=== PATIENT | male | born 1970 | race Caucasian/White ===

== ENCOUNTER 2021-05-10 17:38 | Emergency (ER) | payer MEDICAID, OTHER ==
[2021-05-10] MEDS ORDERED: Heparin Sodium 5,000 Units/ML Vial IVPUSH ONE (17:50)
[2021-05-10] MEDS ORDERED: Aspirin 81 MG Tab.Chew PO ONE (17:50)
[2021-05-10] MEDS: Nitroglycerin 0.4 MG Tab.SL SL ONE ×2 (17:54→18:07)
[2021-05-10] MEDS ORDERED: Morphine 4 MG/ML Syringe IVPUSH ONE (18:07)
[2021-05-10] MEDS ORDERED: Clopidogrel 75 MG Tab PO ONE (18:07)
[2021-05-10] MEDS ORDERED: Nitroglycerin/D5W 25 MG/250 ML BOTTLE IV SCH (18:15)
--- NOTE | 2021-05-10 18:15 | EDM.PDOC ---
ED HPI GENERAL MEDICAL PROBLEM - General Chief Complaint: Cardiovascular Problem Stated Complaint: POSSIBLE HEATY ATTACK Time Seen by Provider: 05/10/21 17:50 Source of Information: Reports: Patient History Limitations: Reports: No Limitations - History of Present Illness INITIAL COMMENTS - FREE TEXT/NARRATIVE: This is a 50-year-old male with history of hyperlipidemia, hypertension, tobacco use who presents with bilateral arm pain. He reports that approximately 5 PM this evening he noted the sudden onset of bilateral arm pain. Some mild associated dyspnea. No history of similar pain in the past. Pain does not radiate to the back. Is not pleuritic. No cough. No history of cardiac disease. No blood thinner use. Bilateral Arm Pain Score (Numeric/FACES): 5 - Related Data Allergies Allergy/AdvReac Type Severity Reaction Status Date / Time No Known Allergies Allergy Verified 05/10/21 17:50 Home Meds: Home Meds Aspirin [Adult Low Dose Aspirin EC] 81 mg PO DAILY 05/10/21 [History] Simvastatin [Zocor] 20 mg PO BEDTIME 05/10/21 [History] lisinopriL [Lisinopril] 10 mg PO DAILY 05/10/21 [History] Past Medical History Cardiovascular History: Reports: CAD, High Cholesterol, Hypertension Respiratory History: Reports: None Gastrointestinal History: Reports: None Genitourinary History: Reports: None Musculoskeletal History: Reports: Arthritis, Fracture Neurological History: Reports: None Psychiatric History: Reports: None Endocrine/Metabolic History: Reports: None Hematologic History: Reports: None Oncologic (Cancer) History: Reports: None Dermatologic History: Reports: None - Infectious Disease History Infectious Disease History: Reports: Chicken Pox - Past Surgical History HEENT Surgical History: Reports: Oral Surgery GI Surgical History: Reports: None Musculoskeletal Surgical History: Reports: Other (See Below) Other Musculoskeletal Surgeries/Procedures:: elbow surgery left Social & Family History - Tobacco Use Tobacco Use Status *Q: Current Every Day Tobacco User Years of Tobacco use: 25 Packs/Tins Daily: 1.5 - Caffeine Use Caffeine Use: Reports: Coffee - Recreational Drug Use Recreational Drug Use: No ED ROS GENERAL - Review of Systems Review Of Systems: See Below Constitutional: Reports: No Symptoms HEENT: Reports: No Symptoms Respiratory: Reports: Shortness of Breath Cardiovascular: Reports: Chest Pain Endocrine: Reports: No Symptoms GI/Abdominal: Reports: No Symptoms : Reports: No Symptoms Musculoskeletal: Reports: No Symptoms Skin: Reports: No Symptoms Neurological: Reports: No Symptoms Psychiatric: Reports: No Symptoms Hematologic/Lymphatic: Reports: No Symptoms Immunologic: Reports: No Symptoms ED EXAM, GENERAL - Physical Exam Exam: See Below Exam Limited By: No Limitations General Appearance: Alert, No Apparent Distress Ears: Normal External Exam Nose: Normal Inspection Throat/Mouth: Normal Inspection Head: Atraumatic, Normocephalic Neck: Normal Inspection Respiratory/Chest: Lungs Clear Cardiovascular: Regular Rate, Rhythm GI/Abdominal: Soft, Non-Tender Back Exam: Normal Inspection Extremities: Normal Inspection, No Pedal Edema Neurological: Alert, Oriented Psychiatric: Normal Affect, Normal Mood Skin Exam: Warm, Dry #1 Interpretation Rhythm: NSR ST-T: Elevated (ST elevation in leads II, III and aVF with anterior reciprocal changes.) Course - Vital Signs Last Recorded V/S: Last Vital Signs Temp 35.7 C L 05/10/21 17:44 Pulse 78 05/10/21 17:59 Resp 16 05/10/21 17:59 BP 101/49 L 05/10/21 18:07 Pulse Ox 95 05/10/21 17:59 - Orders/Labs/Meds Orders: Active Orders 24 hr Category Date Time Status CXR [Chest 1V Frontal] [CR] Stat Exams 05/10/21 17:50 Ordered CBC W/O DIFF,HEMOGRAM [HEME] Stat Lab 05/10/21 17:46 Received COMPREHENSIVE METABOLIC PN,CMP [CHEM] Stat Lab 05/10/21 17:46 Received TROPONIN I [CHEM] Stat Lab 05/10/21 17:46 Received Nitroglycerin 25 MG in D5W @ 10 MCG/MIN(250ml) Premix Med 05/10/21 18:15 Ordered Nitroglycerin/D5W [Nitroglycerin 25 MG/D5W 250 ML] 25 mg in 250 ml IV TITRATE Medication Orders Nitroglycerin/Dextrose (Nitroglycerin 25 Mg/D5w 250 Ml) 25 mg in 250 mls @ 6 mls/hr IV TITRATE BARAK; Protocol Meds: Medications Generic Name Dose Route Start Last Admin Trade Name Freq PRN Reason Stop Dose Admin Nitroglycerin/Dextrose 25 mg in 250 mls @ 6 mls/hr 05/10/21 18:15 Nitroglycerin 25 Mg/D5w 250 Ml IV TITRATE BARAK Protocol 10 MCG/MIN Discontinued Medications Generic Name Dose Route Start Last Admin Trade Name Rahat PRN Reason Stop Dose Admin Aspirin 324 mg 05/10/21 17:50 05/10/21 17:54 Aspirin 81 Mg Tab.Chew PO 05/10/21 17:51 324 mg ONETIME ONE Administration Clopidogrel Bisulfate 600 mg 05/10/21 18:07 Clopidogrel 75 Mg Tab PO 05/10/21 18:08 ONETIME ONE Heparin Sodium (Porcine) 5,000 units 05/10/21 17:50 05/10/21 17:56 Heparin Sodium 5,000 Units/Ml Vial IVPUSH 05/10/21 17:51 5,000 units ONETIME ONE Administration Morphine Sulfate 4 mg 05/10/21 18:07 Morphine 4 Mg/Ml Syringe IVPUSH 05/10/21 18:08 ONETIME ONE Nitroglycerin 0.4 mg 05/10/21 17:50 05/10/21 18:07 Nitroglycerin 0.4 Mg Tab.Sl SL 05/10/21 17:51 0.4 mg ONETIME ONE Administration - Re-Assessments/Exams Free Text/Narrative Re-Assessment/Exam: 50-year-old male presents with concerns of chest pain. EKG obtained upon arrival in ED, STEMI criteria met. Vitals are normal. Physical exam is reassuring. In 9 pain on ED arrival. He was immediately administered aspirin, nitroglycerin, have ordered heparin push as well as Plavix load after discussion with receiving entry level software developer. Chest X-ray is normal, no indication of aortic pathology, does not seem consistent with this nor PE. Labs are pending. After my initial evaluation I contacted the STEMI line at [facility]. They have accepted this patient to go to the [facility]. He is being given anticoagulants and antiplatelets at the request. We are attempting to make him chest pain-free with sublingual nitro, will initiate an infusion as able. EMS is in route. As long as there are no delays we are deferring lytics per discussion with receiving facility. 05/10/21 18:12 Departure - Departure Time of Disposition: 06:05 Disposition: DC/Tfer to Acute Hospital 02 Reason for Transfer *Q: Primary PCI Indicated Condition: Fair Clinical Impression: STEMI (ST elevation myocardial infarction) Qualifiers: Involved coronary artery: unspecified coronary artery Qualified Code(s): I21.3 - ST elevation (STEMI) myocardial infarction of unspecified site Referrals: Ashlyn Lama [facility] [Primary Care Provider] - Critical Care Note - Critical Care Note Comments: 32 minutes of critical care time were spent diagnosing and treating ST elevation myocardial infarction which places patient at risk for sudden, life-threatening cardiovascular collapse. Sepsis Event Note (ED) - Focused Exam Vital Signs: Vital Signs Temp Pulse Resp BP BP Pulse Ox 05/10/21 18:07 101/49 L 05/10/21 17:59 78 16 120/77 95 05/10/21 17:54 122/87 05/10/21 17:44 35.7 C L 74 16 122/87 98 - My Orders Last 24 Hours: My Active Orders 05/10/21 17:46 CBC W/O DIFF,HEMOGRAM [HEME] Stat COMPREHENSIVE METABOLIC PN,CMP [CHEM] Stat TROPONIN I [CHEM] Stat 05/10/21 17:50 CXR [Chest 1V Frontal] [CR] Stat 05/10/21 18:15 Nitroglycerin 25 MG in D5W @ 10 MCG/MIN(250ml) Premix Nitroglycerin/D5W [Nitroglycerin 25 MG/D5W 250 ML] 25 mg in 250 ml IV TITRATE - Assessment/Plan Last 24 Hours: My Active Orders 05/10/21 17:46 CBC W/O DIFF,HEMOGRAM [HEME] Stat COMPREHENSIVE METABOLIC PN,CMP [CHEM] Stat TROPONIN I [CHEM] Stat 05/10/21 17:50 CXR [Chest 1V Frontal] [CR] Stat 05/10/21 18:15 Nitroglycerin 25 MG in D5W @ 10 MCG/MIN(250ml) Premix Nitroglycerin/D5W [Nitroglycerin 25 MG/D5W 250 ML] 25 mg in 250 ml IV TITRATE
--- NOTE | 2021-05-10 18:21 | CRLCR ---
For Patients: As a result of the Century Cures Act, medical imaging exams and procedure reports are released immediately into your electronic medical record. You may view this report before your referring provider. If you have questions, please contact your health care provider. INDICATION: chest pain TECHNIQUE: Chest 1 view. COMPARISON: None. FINDINGS: Cardiovascular and mediastinum: Heart size and vasculature are normal in caliber and appearance. Mediastinum is within normal limits. Lungs and pleural space: Lungs are clear. No sign of infiltrate or mass. No sign of pleural effusion. No pneumothorax. Bones and soft tissues: No significant findings. IMPRESSION: Unremarkable chest. Dictated by: Edilberto Wesley MD @ 05/10/2021 18:20:23 (Electronically Signed)
== END 2021-05-10 18:20 ==
LOC: JP.ED 17:38
DX: I21.3 ST elevation (STEMI) myocardial infarction of unspecified site (principal); I25.10 Atherosclerotic heart disease of native coronary artery without angina pectoris; I10 Essential (primary) hypertension; E78.00 Pure hypercholesterolemia, unspecified; M19.90 Unspecified osteoarthritis, unspecified site; Z72.0 Tobacco use; Z79.82 Long term (current) use of aspirin; Z79.899 Other long term (current) drug therapy; Z20.822 Contact with and (suspected) exposure to COVID-19
CPT/HCPCS: 36415; 71045; 80053; 84484; 85027; 87635; 96374; 96375; 99285; A9270; J1644; J2270; J3490; U0002